=== PATIENT | female | born 1985 ===

== ENCOUNTER 2017-11-23 08:02 | Emergency (ER) | payer OTHER ==
[2017-11-23 08:13] VITALS: BMI 39.1
[2017-11-23 08:14] VITALS: TEMP 98
--- NOTE | 2017-11-23 09:48 | ED PDOC ---
HPI: CCC, URI, Sore Throat Time Seen by Provider: 11/23/17 08:40 Chief Complaint (Nursing): Cough, Cold, Congestion History Per: Patient History/Exam Limitations: no limitations Have you had recent travel within the past 21 days to any of the following countries: [place], [place], [place] or [place]?: No Onset/Duration Of Symptoms: Days (1), Gradual Current Symptoms Are (Timing): Still Present Location Of Pain: Throat, Diffuse Myalgias, Headache. denies: Sinus/es Sick Contacts (Context): None Associated Symptoms: Chills, Cough, Sputum (campos), Myalgias. denies: Fever, Nasal Congestion, Nausea, Vomiting, Diarrhea Ear Symptoms: Bilateral: None Severity: Mild Additional History Per: Patient Additional Complaint(s): c/o chest pain which worsens when coughing, chills, headache x1 day. Past Medical History Reviewed: Historical Data, Nursing Documentation, Vital Signs Vital Signs: Last Vital Signs Temp 98 F 11/23/17 08:13 Pulse 115 H 11/23/17 08:13 Resp 20 11/23/17 08:13 BP 153/89 H 11/23/17 08:13 Pulse Ox 96 11/23/17 09:49 - Medical History PMH: Diabetes - Family History Family History: States: Diabetes - Living Arrangements Living Arrangements: With Family - Social History Current smoker - smoking cessation education provided: No - Immunization History Hx Influenza Vaccination: No - Home Medications Home Medications: Ambulatory Orders Medication Instructions Recorded 1 tab PO DAILY 10/30/14 Nitrofurantoin Macrocrystals 100 mg PO BID #10 cap 11/24/14 [Macrobid] Ibuprofen [Motrin] 1 tab PO Q8 PRN #21 tab 03/28/15 traMADol [Ultram] 50 mg PO Q6H PRN #15 tab 10/08/16 Albuterol HFA [Ventolin HFA 90 2 puff IH [id number] PRN #60 puff 11/23/17 mcg/actuation (8 g)] Azithromycin [Z-Brenden] 250 mg PO DAILY #6 tab 11/23/17 - Allergies Allergies/Adverse Reactions: Allergies Allergy/AdvReac Type Severity Reaction Status Date / Time No Known Allergies Allergy Verified 10/08/16 12:23 Review of Systems ROS Statement: Except As Marked, All Systems Reviewed And Found Negative Constitutional: Negative for: Fever, Chills Cardiovascular: Negative for: Chest Pain, Palpitations Respiratory: Positive for: Cough, Shortness of Breath Gastrointestinal: Negative for: Nausea, Vomiting, Abdominal Pain Musculoskeletal: Negative for: Neck Pain Neurological: Negative for: Weakness, Numbness Physical Exam - Reviewed Nursing Documentation Reviewed: Yes Vital Signs Reviewed: Yes - Physical Exam Appears: Positive for: Uncomfortable Head Exam: Positive for: ATRAUMATIC, NORMAL INSPECTION, NORMOCEPHALIC Eye Exam: Positive for: Normal appearance, EOMI, PERRL ENT: Positive for: Pharynx Is (clear,mmm). Negative for: Pharyngeal Erythema, Tonsillar Exudate, Tonsillar Swelling Neck: Positive for: Normal, Painless ROM, Supple. Negative for: Decreased ROM, Limited ROM, Trachea Midline Cardiovascular/Chest: Positive for: Chest Non Tender, Tachycardia. Negative for : Edema, Gallop, Murmur, Bradycardia Respiratory: Positive for: Wheezing (mild scattered). Negative for: Decreased Breath Sounds, Accessory Muscle Use, Crackles, Rales, Rhonchi, Stridor, Respiratory Distress, Plerual Rub Pulses-Radial (L): 2+ Pulses-Radial (R): 2+ Gastrointestinal/Abdominal: Positive for: Normal Exam, Bowel Sounds, Soft. Negative for: Tenderness Back: Positive for: Normal Inspection. Negative for: L CVA Tenderness, R CVA Tenderness Extremity: Positive for: Normal ROM. 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 Negative for: Motor/Sensory Deficits - ECG ECG: Positive for: Interpreted By Me ECG Rhythm: Positive for: Normal QRS, Normal ST Segment, Sinus Tachycardia (109) . Negative for: ST/T Changes Interpretation Of Abn EKG: no evidence of ischemia O2 Sat by Pulse Oximetry: 96 Pulse Ox Interpretation: Normal - Radiology X-Ray: Interpreted by Me X-Ray Interpretation: No Acute Disease - Progress ED Course And Treament: advise antibiotics, albuterol. chest clear lings sx markedly improved advise close f/u with pmd. Re-evaluation Time: 10:43 Condition: Improved Disposition - Clinical Impression Clinical Impression: Acute bronchitis - Patient ED Disposition Is Patient to be Admitted: No Counseled Patient/Family Regarding: Studies Performed, Diagnosis, Need For Followup, Rx Given - Disposition Referrals: [facility] [place] [Outside] (2 to 3 days) Disposition: Routine/Home Disposition Time: 10:20 Condition: GOOD Prescriptions: Albuterol HFA [Ventolin HFA 90 mcg/actuation (8 g)] 2 puff IH [id number] PRN #60 puff PRN Reason: Cough Azithromycin [Z-Brenden] 250 mg PO DAILY #6 tab Instructions: Acute Bronchitis (ED) Forms: [facility] ([place]), [facility] ED School/Work Excuse
[2017-11-23 11:14] VITALS: BP 140/83; PULSE 98; RESP 16; O2SAT 98
--- NOTE | 2017-11-25 10:03 | CARD ---
APPROVED REPORT EKG Measurement Heart [id number] <Conclusion> Sinus tachycardia Possible Left atrial enlargement Borderline ECG
== END 2017-11-23 11:14 | disposition home or self-care (01) ==
LOC: H.ER 08:02
DX: J20.9 Acute bronchitis, unspecified (principal); E11.9 Type 2 diabetes mellitus without complications